=== PATIENT | male | born 1970 | race Caucasian/White ===

== ENCOUNTER 2020-12-19 12:50 | Emergency (ER) | payer OTHER ==
[~2020-12-19] VITALS: Ht 180.3 cm; Wt 115.9 kg
[2020-12-19 13:54] VITALS: TEMP 98
[2020-12-19] MEDS ORDERED: PRILOSEC 20MG20 MG PO (14:10)
[2020-12-19] MEDS ORDERED: CELEXA40 MG PO (14:10)
[2020-12-19] MEDS ORDERED: THERA-D 20002000 IU PO (14:10)
[2020-12-19] MEDS ORDERED: LOPID 600M600 MG/TAB PO (14:11)
[2020-12-19] MEDS ORDERED: LOTREL 10 MG-401 CAP PO ×2 (14:11→14:36)
[2020-12-19] MEDS ORDERED: OMEGA-3 1000 MG1 CAP PO (14:12)
[2020-12-19] MEDS ORDERED: PROTONIX 40MG T40 MG PO (14:37)
[2020-12-19 15:06] VITALS: BP 164/93; PULSE 68
== END 2020-12-19 15:06 | disposition home or self-care (01) ==
LOC: COL.ER 12:50
DX: I10 Essential (primary) hypertension (principal); F41.9 Anxiety disorder, unspecified; K21.9 Gastro-esophageal reflux disease without esophagitis; Z91.14 Patient's other noncompliance with medication regimen; Z79.899 Other long term (current) drug therapy
CPT/HCPCS: C9113